=== PATIENT | male | born 1960 | race Hispanic/Latino ===

== ENCOUNTER 2017-07-15 02:40 | Emergency (ER) | payer MEDICAID ==
[2017-07-15 03:06] VITALS: TEMP 98.2; O2SAT 98
--- NOTE | 2017-07-15 03:09 | C.PDOC ---
History Of Present Illness Patient is a 57 y/o male who presents to the ED with a complaint of a cough for the last week. Patient notes cough worsened today, prompting visit. Patient admits to colored sputum production and intermittent subjective fever. Patient took Mucinex and Tylenol with little relief. Denies any allergies. Time Seen by Provider: 07/15/17 03:00 Chief Complaint (Nursing): Cough, Cold, Congestion History Per: Patient History/Exam Limitations: no limitations Onset/Duration Of Symptoms: Days (1 week ) Current Symptoms Are (Timing): Still Present Associated Symptoms: Fever (intermittent), Cough, Sputum Recent travel outside of the [place]: No Past Medical History Reviewed: Historical Data, Nursing Documentation, Vital Signs Vital Signs: Last Vital Signs Temp 98.2 F 07/15/17 02:59 Pulse 68 07/15/17 03:25 Resp 18 07/15/17 03:25 BP 124/64 07/15/17 03:25 Pulse Ox 98 07/15/17 03:31 - Medical History PMH: No Chronic Diseases Surgical History: No Surg Hx Family History: States: No Known Family Hx - Social History Hx Tobacco Use: No Hx Alcohol Use: No Hx Substance Use: No Review Of Systems Constitutional: Positive for: Fever (subjective) Respiratory: Positive for: Cough, Sputum Physical Exam - Physical Exam Appears: Well, Non-toxic, No Acute Distress Skin: Warm, Dry, No Rash Head: Atraumatic, Normacephalic Eye(s): bilateral: Normal Inspection Ear(s): Bilateral: Normal (no erythema) Nose: Normal Oral Mucosa: Moist Throat: Normal, No Erythema Neck: Normal ROM Lymphatic: Normal Exam, No Adenopathy Chest: Symmetrical Cardiovascular: Rhythm Regular, No Murmur Respiratory: Normal Breath Sounds, No Accessory Muscle Use, No Rales, No Rhonchi , No Wheezing Extremity: Bilateral: Atraumatic, Normal Color And Temperature, Normal ROM Neurological/Psych: Oriented x3, Normal Speech, Other (no focal deficits) ED Course And Treatment O2 Sat by Pulse Oximetry: 98 Medical Decision Making Medical Decision Making: Patient with cough for one week, productive and states it is worsening. Will treat with Zithromax. Patient has no fever and lungs clear bilaterally during ED eval. Patient advised to take medications and follow up with PCP or clinic. Disposition Counseled Patient/Family Regarding: Diagnosis, Need For Followup, Rx Given - Disposition Referrals: Ash Raygoza MD [Staff Provider] - Disposition: HOME/ ROUTINE Disposition Time: 03:20 Condition: GOOD Additional Instructions: You have upper respiratory infection. Take Tylenol or Motrin alternating every 4 -6 hours for Fever 100.4F or higher. Rest and drink plenty of fluids. May use cool mist humidifier or vaporizer in room. Try taking over the counter antihistamine (Claritin, Юлия, Zyrtec). Take Cough medicine as needed every 6 -8 hours. Follow up with your primary medical doctor or clinic in 1 week for further evaluation. Prescriptions: Azithromycin [Zithromax] 250 mg PO DAILY #4 tab Promethazine DM [Phenergan DM Syrup] 5 ml PO Q8 PRN #3 oz PRN Reason: Cough Instructions: Upper Respiratory Infection (ED) Forms: [facility] (Greek) - POA Present On Arrival: None - Clinical Impression Clinical Impression: Upper respiratory infection - Scribe Statement The provider has reviewed the documentation as recorded by the Scribe Beverly Lucas All medical record entries made by the Scribe were at my direction and personally dictated by me. I have reviewed the chart and agree that the record accurately reflects my personal performance of the history, physical exam, medical decision making, and the department course for this patient. I have also personally directed, reviewed, and agree with the discharge instructions and disposition.
[2017-07-15 03:26] VITALS: BP 124/64; PULSE 68; RESP 18
== END 2017-07-15 03:26 | disposition home or self-care (01) ==
LOC: C.ER 02:40
DX: J06.9 Acute upper respiratory infection, unspecified (principal)